=== PATIENT | male | born 1935 | race African-American/Black ===

== ENCOUNTER 2020-01-28 14:29 | Inpatient (IN) | payer OTHER ==
[~2020-01-28] VITALS: Ht 170.2 cm; Wt 72.2 kg
[2020-01-28 15:14] LABS: HEMATOCRIT. 37.7 % (42.0-52.0); HEMOGLOBIN. 12.7 g/dL (14.0-18.0); MEAN CORPUSCULAR HEMOGLOBIN 29.3 pg (28.0-32.0); MEAN CORPUSCULAR VOLUME 87.2 fL (80.0-94.0); PLATELET 181 x1000/uL (130-400); RED BLOOD CELL COUNT 4.32 mill/uL (4.7-6.1); RED CELL DISTRIBUTION WIDTH 14.6 % (11.6-14.6)
[2020-01-28 15:22] LABS: CHLORIDE 108 mEq/L (98-107); PROTHROMBIN TIME 11.3 sec (9.6-11.0)
[2020-01-28 15:47] LABS: PLATELET ESTIMATE NORMAL
[2020-01-28] MEDS ORDERED: ASPIRIN 325MG EC TABLET PO ONE (16:45)
[2020-01-28] MEDS ORDERED: CLOPIDOGREL 75MG TABLET PO ONE (16:45)
[2020-01-28 16:59] LABS: CLARITY URINE CLEAR (CLEAR); KETONES URINE NEGATIVE (NEGATIVE); LEUKOCYTE ESTERASE URINE NEGATIVE (NEGATIVE); NITRITE URINE NEGATIVE (NEGATIVE); OCCULT BLOOD URINE 1+ (NEGATIVE); PH URINE 6.5 (4.5-8.0); PROTEIN URINE 2+ (NEGATIVE); SPECIFIC GRAVITY URINE 1.014 (1.005-1.030); UROBILINOGEN URINE 0.2 E.U./dL (0.2-1.0)
[2020-01-28 17:02] LABS: COLOR URINE PALE YELLOW (YELLOW)
[2020-01-28] MEDS ORDERED: ACETAMINOPHEN 325MG TABLET PO PRN (19:30)
[2020-01-28] MEDS ORDERED: IPRATROPIUM/ALBUTEROL 0.5-3(2.5)MG/3ML NEB NEB PRN (19:30)
[2020-01-28] MEDS ORDERED: GUAIFENESIN 200MG/10ML SUGAR FREE UDC PO PRN (19:30)
[2020-01-28] MEDS ORDERED: MAGNESIUM/ALUMINUM HYDROXIDE/SIMETHICONE 30ML UDC PO PRN (19:30)
[2020-01-28] MEDS ORDERED: NA PHOS,M-B/NA PHOS,DI-BA ENEMA 118ML PR PRN (19:30)
[2020-01-28] MEDS ORDERED: ONDANSETRON HCL 4MG/2ML INJ IV PRN (19:30)
[2020-01-28] MEDS ORDERED: DEXTROSE 50% WATER 50ML SYRINGE IV PRN (19:30)
[2020-01-28] MEDS ORDERED: HYDROCODONE/ACETAMINOPHEN 10/325MG TABLET PO PRN (19:30)
[2020-01-28] MEDS ORDERED: DOCUSATE SODIUM 100MG CAPSULE PO PRN (19:30)
[2020-01-28] MEDS ORDERED: MORPHINE SULFATE 2 MG/ML CPJ (NOT FOR IM USE) IV PRN (19:30)
[2020-01-28 20:00] VITALS: BP 197/81
[2020-01-28 20:41] VITALS: BP 197/81
[2020-01-28] MEDS: INSULIN LISPRO 100 UNITS/ML SUBCUT SCH (21:00)
[2020-01-28] MEDS: HYDRALAZINE 20MG/ML VIAL IV PRN (21:11)
[2020-01-28] MEDS: ENOXAPARIN 30MG/0.3ML SYR SUBCUT SCH (21:11)
[2020-01-28] MEDS: BLOOD SUGAR DIAGNOSTIC STRIP TEST SCH (21:12)
[2020-01-28] MEDS: SODIUM CHLORIDE 0.9% INJ 3ML FLUSH IVF SCH (21:13)
[2020-01-28 23:12] LABS: CREATINE KINASE 85 IU/L (39-308)
[2020-01-28 23:13] LABS: CREATINE KINASE MB FRACTION < 1.0 ng/mL (0.5-3.6)
[2020-01-29] VITALS: BP 158/84
[2020-01-29 04:00] VITALS: BP 178/85
[2020-01-29] MEDS: HYDRALAZINE 20MG/ML VIAL IV PRN (04:32)
[2020-01-29 05:47] LABS: EOSINOPHILS % 2.2 % (0.0-5.0); HEMATOCRIT. 38.7 % (42.0-52.0); LYMPHOCYTES % 23.5 % (20.0-50.0); MEAN PLATELET VOLUME 9.9 fl (7.4-10.4); NEUTROPHILS % 64.3 % (40.0-76.0); PLATELET 185 x1000/uL (130-400); RED BLOOD CELL COUNT 4.49 mill/uL (4.7-6.1); RED CELL DISTRIBUTION WIDTH 14.3 % (11.6-14.6)
[2020-01-29 06:03] LABS: CHLORIDE 104 mEq/L (98-107)
[2020-01-29 06:19] LABS: CREATINE KINASE 85 IU/L (39-308); T4 FREE 1.37 ng/dL (0.76-1.46)
[2020-01-29 06:21] LABS: CREATINE KINASE MB FRACTION < 1.0 ng/mL (0.5-3.6)
[2020-01-29] MEDS: CLONIDINE 0.1MG TABLET PO PRN (06:35)
[2020-01-29] MEDS: SODIUM CHLORIDE 0.9% INJ 3ML FLUSH IVF SCH ×3 (06:41→23:25)
[2020-01-29] MEDS: BLOOD SUGAR DIAGNOSTIC STRIP TEST SCH ×4 (06:41→23:18)
[2020-01-29] MEDS: INSULIN LISPRO 100 UNITS/ML SUBCUT SCH ×4 (08:27→23:18)
[2020-01-29 08:28] VITALS: BP 157/76
[2020-01-29] MEDS ORDERED: POTASSIUM CHLORIDE 20MEQ TABLET SR PO NR (09:45)
[2020-01-29 12:16] VITALS: BP 157/79
[2020-01-29 15:58] LABS: CREATINE KINASE 75 IU/L (39-308)
[2020-01-29 15:59] LABS: CREATINE KINASE MB FRACTION < 1.0 ng/mL (0.5-3.6)
[2020-01-29 16:10] VITALS: BP 156/73
[2020-01-29 17:30] LABS: VITAMIN B12 SERUM 438 pg/mL (211-911)
[2020-01-29] MEDS: LORAZEPAM 2MG/ML CPJ IV PRN (19:59)
[2020-01-29 20:44] VITALS: BP 156/72
[2020-01-29 23:20] LABS: CREATINE KINASE 100 IU/L (39-308)
[2020-01-29 23:21] LABS: CREATINE KINASE MB FRACTION < 1.0 ng/mL (0.5-3.6)
[2020-01-29] MEDS: ENOXAPARIN 30MG/0.3ML SYR SUBCUT SCH (23:26)
[2020-01-30 00:25] VITALS: BP 141/75
[2020-01-30 04:00] VITALS: BP 146/73
[2020-01-30] MEDS: SODIUM CHLORIDE 0.9% INJ 3ML FLUSH IVF SCH ×4 (06:00→21:23)
[2020-01-30] MEDS: INSULIN LISPRO 100 UNITS/ML SUBCUT SCH ×4 (06:48→20:43)
[2020-01-30] MEDS: BLOOD SUGAR DIAGNOSTIC STRIP TEST SCH ×4 (06:48→20:21)
[2020-01-30 06:54] LABS: CREATINE KINASE 151 IU/L (39-308)
[2020-01-30 06:55] LABS: CREATINE KINASE MB FRACTION < 1.0 ng/mL (0.5-3.6)
[2020-01-30] MEDS: LORAZEPAM 2MG/ML CPJ IV PRN ×2 (07:20→14:32)
[2020-01-30 07:44] VITALS: BP 133/83
[2020-01-30 11:32] VITALS: BP 165/84
[2020-01-30] MEDS ORDERED: POTASSIUM CHLORIDE 20MEQ TABLET SR PO ONE (13:00)
[2020-01-30] MEDS: ENOXAPARIN 30MG/0.3ML SYR SUBCUT SCH (20:42)
[2020-01-30 21:24] VITALS: BP 170/79
[2020-01-30] MEDS: HYDRALAZINE 20MG/ML VIAL IV PRN (21:24)
[2020-01-30 23:07] VITALS: BP 188/90
[2020-01-30] MEDS: CLONIDINE 0.1MG TABLET PO PRN (23:07)
[2020-01-31] VITALS: BP 168/75
[2020-01-31 00:54] VITALS: BP 126/70
[2020-01-31 04:00] VITALS: BP 143/78
[2020-01-31] MEDS: BLOOD SUGAR DIAGNOSTIC STRIP TEST SCH ×4 (06:29→20:56)
[2020-01-31] MEDS: INSULIN LISPRO 100 UNITS/ML SUBCUT SCH ×4 (06:30→20:57)
[2020-01-31] MEDS: SODIUM CHLORIDE 0.9% INJ 3ML FLUSH IVF SCH ×3 (07:06→20:57)
[2020-01-31 08:00] VITALS: BP 166/84
[2020-01-31] MEDS: CLONIDINE 0.1MG TABLET PO PRN ×2 (08:50→17:42)
[2020-01-31] MEDS ORDERED: CLOPIDOGREL 75MG TABLET PO SCH (11:00)
[2020-01-31 16:18] VITALS: BP 168/98
[2020-01-31 20:00] VITALS: BP 187/85
[2020-01-31] MEDS: ENOXAPARIN 30MG/0.3ML SYR SUBCUT SCH (20:56)
[2020-01-31] MEDS: HYDRALAZINE 20MG/ML VIAL IV PRN (21:02)
[2020-02-01] VITALS: BP 205/96
[2020-02-01] MEDS: CLONIDINE 0.1MG TABLET PO PRN ×2 (00:58→08:46)
[2020-02-01 04:00] VITALS: BP 178/86
[2020-02-01] MEDS: HYDRALAZINE 20MG/ML VIAL IV PRN ×3 (04:08→20:12)
[2020-02-01] MEDS: SODIUM CHLORIDE 0.9% INJ 3ML FLUSH IVF SCH ×3 (05:11→21:50)
[2020-02-01] MEDS: BLOOD SUGAR DIAGNOSTIC STRIP TEST SCH ×4 (05:44→20:38)
[2020-02-01] MEDS: INSULIN LISPRO 100 UNITS/ML SUBCUT SCH ×4 (05:44→20:36)
[2020-02-01 08:00] VITALS: BP 181/86
[2020-02-01] MEDS: LORAZEPAM 2MG/ML CPJ IV PRN ×3 (08:46→20:54)
[2020-02-01] MEDS ORDERED: ASPIRIN 81MG TABLET PO SCH (09:00)
[2020-02-01] MEDS: RISPERIDONE 0.5MG TABLET PO PRN (11:30)
[2020-02-01 12:00] VITALS: BP 153/80
[2020-02-01] MEDS: DIPHENHYDRAMINE 50MG/ML VIAL IV PRN (12:26)
[2020-02-01 12:54] LABS: CHLORIDE 110 mEq/L (98-107)
[2020-02-01] MEDS: AMLODIPINE 10MG TABLET PO SCH (13:30)
[2020-02-01 16:00] VITALS: BP 189/88
[2020-02-01] MEDS: DEXT 5%/0.45% NACL 1000ML 1,000 ML IV SCH (17:03)
[2020-02-01 20:00] VITALS: BP 169/89
[2020-02-01] MEDS: ASPIRIN 81MG TABLET PO SCH (20:10)
[2020-02-01] MEDS: CLOPIDOGREL 75MG TABLET PO SCH (20:10)
[2020-02-01] MEDS: ATORVASTATIN CALCIUM 40MG TABLET PO SCH (20:10)
[2020-02-01] MEDS: ENOXAPARIN 30MG/0.3ML SYR SUBCUT SCH (20:11)
[2020-02-02] VITALS: BP 151/83
[2020-02-02] MEDS: LORAZEPAM 2MG/ML CPJ IV PRN ×2 (02:02→14:30)
[2020-02-02 04:00] VITALS: BP 176/83
[2020-02-02] MEDS: DEXT 5%/0.45% NACL 1000ML 1,000 ML IV SCH ×2 (04:33→22:30)
[2020-02-02] MEDS: CLONIDINE 0.1MG TABLET PO PRN ×2 (04:40→17:44)
[2020-02-02] MEDS: SODIUM CHLORIDE 0.9% INJ 3ML FLUSH IVF SCH ×3 (05:15→22:30)
[2020-02-02] MEDS: BLOOD SUGAR DIAGNOSTIC STRIP TEST SCH ×4 (05:45→21:00)
[2020-02-02] MEDS: INSULIN LISPRO 100 UNITS/ML SUBCUT SCH ×4 (06:17→21:00)
[2020-02-02 06:28] LABS: BASOPHILS % 0.7 % (0.0-2.0); EOSINOPHILS % 1.4 % (0.0-5.0); HEMATOCRIT. 40.1 % (42.0-52.0); HEMOGLOBIN. 13.3 g/dL (14.0-18.0); LYMPHOCYTES % 13.1 % (20.0-50.0); MEAN CORPUSCULAR HEMOGLOBIN 29.1 pg (28.0-32.0); MEAN CORPUSCULAR VOLUME 87.9 fL (80.0-94.0); MEAN PLATELET VOLUME 9.4 fl (7.4-10.4); NEUTROPHILS % 75.8 % (40.0-76.0); PLATELET 199 x1000/uL (130-400); RED BLOOD CELL COUNT 4.57 mill/uL (4.7-6.1); RED CELL DISTRIBUTION WIDTH 14.8 % (11.6-14.6)
[2020-02-02 06:44] LABS: CHLORIDE 110 mEq/L (98-107)
[2020-02-02 08:00] VITALS: BP 166/79
[2020-02-02] MEDS: CLOPIDOGREL 75MG TABLET PO SCH (09:07)
[2020-02-02] MEDS: HYDRALAZINE 20MG/ML VIAL IV PRN ×2 (09:07→17:45)
[2020-02-02] MEDS: AMLODIPINE 10MG TABLET PO SCH (09:07)
[2020-02-02] MEDS: ASPIRIN 81MG TABLET PO SCH (09:07)
[2020-02-02 12:00] VITALS: BP 169/107
[2020-02-02 16:00] VITALS: BP 198/91
[2020-02-02 20:00] VITALS: BP 155/98
[2020-02-02] MEDS: ENOXAPARIN 30MG/0.3ML SYR SUBCUT SCH (21:00)
[2020-02-02] MEDS: ATORVASTATIN CALCIUM 40MG TABLET PO SCH (21:00)
[2020-02-02] MEDS: RISPERIDONE 0.5MG TABLET PO PRN (22:05)
[2020-02-03] VITALS (8 sets, daily range): BP systolic 146–194; BP diastolic 74–105
[2020-02-03] MEDS: HYDRALAZINE 20MG/ML VIAL IV PRN ×2 (04:14→17:39)
[2020-02-03] MEDS: SODIUM CHLORIDE 0.9% INJ 3ML FLUSH IVF SCH ×3 (05:57→22:38)
[2020-02-03] MEDS: BLOOD SUGAR DIAGNOSTIC STRIP TEST SCH ×4 (05:57→21:00)
[2020-02-03] MEDS: DEXT 5%/0.45% NACL 1000ML 1,000 ML IV SCH (05:58)
[2020-02-03] MEDS: INSULIN LISPRO 100 UNITS/ML SUBCUT SCH ×4 (06:31→21:00)
[2020-02-03] MEDS: CLOPIDOGREL 75MG TABLET PO SCH (08:53)
[2020-02-03] MEDS: ASPIRIN 81MG TABLET PO SCH (08:53)
[2020-02-03] MEDS: AMLODIPINE 10MG TABLET PO SCH (08:53)
[2020-02-03] MEDS: ATORVASTATIN CALCIUM 40MG TABLET PO SCH ×2 (21:00→22:30)
[2020-02-03] MEDS: CLONIDINE 0.1MG TABLET PO SCH ×2 (22:00→22:30)
[2020-02-03] MEDS: ENOXAPARIN 30MG/0.3ML SYR SUBCUT SCH (22:30)
[2020-02-04] VITALS: BP 135/76
[2020-02-04 04:00] VITALS: BP 141/76
[2020-02-04] MEDS: CLONIDINE 0.1MG TABLET PO SCH (05:57)
[2020-02-04] MEDS: SODIUM CHLORIDE 0.9% INJ 3ML FLUSH IVF SCH ×3 (05:57→22:03)
[2020-02-04] MEDS: BLOOD SUGAR DIAGNOSTIC STRIP TEST SCH ×4 (05:57→21:50)
[2020-02-04] MEDS: INSULIN LISPRO 100 UNITS/ML SUBCUT SCH ×4 (06:18→22:03)
[2020-02-04 08:00] VITALS: BP 174/98
[2020-02-04] MEDS: ASPIRIN 81MG TABLET PO SCH (09:50)
[2020-02-04] MEDS: CLOPIDOGREL 75MG TABLET PO SCH (09:50)
[2020-02-04] MEDS: AMLODIPINE 10MG TABLET PO SCH (09:51)
[2020-02-04] MEDS: METOPROLOL TARTRATE 25MG TABLET PO SCH ×2 (09:53→21:50)
[2020-02-04] MEDS: RISPERIDONE 0.5MG TABLET PO PRN (09:53)
[2020-02-04] MEDS: HYDRALAZINE 20MG/ML VIAL IV PRN (11:46)
[2020-02-04 12:00] VITALS: BP 182/98
[2020-02-04 16:00] VITALS: BP 125/75
[2020-02-04 20:00] VITALS: BP 178/116
[2020-02-04] MEDS ORDERED: METOPROLOL TARTRATE 25MG TABLET PO SCH (21:00)
[2020-02-04] MEDS: ATORVASTATIN CALCIUM 40MG TABLET PO SCH (21:46)
[2020-02-04] MEDS: ENOXAPARIN 30MG/0.3ML SYR SUBCUT SCH (21:47)
[2020-02-05] VITALS: BP 153/108
[2020-02-05] MEDS: HYDRALAZINE 20MG/ML VIAL IV PRN (01:08)
[2020-02-05 04:00] VITALS: BP 104/74
[2020-02-05] MEDS: SODIUM CHLORIDE 0.9% INJ 3ML FLUSH IVF SCH ×3 (06:16→22:25)
[2020-02-05] MEDS: BLOOD SUGAR DIAGNOSTIC STRIP TEST SCH ×4 (06:16→21:00)
[2020-02-05] MEDS: INSULIN LISPRO 100 UNITS/ML SUBCUT SCH ×4 (06:30→22:13)
[2020-02-05 08:00] VITALS: BP 173/95
[2020-02-05] MEDS: AMLODIPINE 10MG TABLET PO SCH (08:50)
[2020-02-05] MEDS: METOPROLOL TARTRATE 25MG TABLET PO SCH ×2 (08:52→22:12)
[2020-02-05] MEDS: ASPIRIN 81MG TABLET PO SCH (08:52)
[2020-02-05] MEDS: CLOPIDOGREL 75MG TABLET PO SCH (08:53)
[2020-02-05 12:00] VITALS: BP 146/76
[2020-02-05 16:00] VITALS: BP 148/82
[2020-02-05] MEDS: RISPERIDONE 0.5MG TABLET PO PRN (18:00)
[2020-02-05 20:00] VITALS: BP 159/78
[2020-02-05] MEDS: ATORVASTATIN CALCIUM 40MG TABLET PO SCH (22:12)
[2020-02-05] MEDS: ENOXAPARIN 30MG/0.3ML SYR SUBCUT SCH (22:16)
[2020-02-06] VITALS: BP 150/63
[2020-02-06 04:00] VITALS: BP 143/82
[2020-02-06] MEDS: SODIUM CHLORIDE 0.9% INJ 3ML FLUSH IVF SCH ×3 (06:10→21:48)
[2020-02-06] MEDS: BLOOD SUGAR DIAGNOSTIC STRIP TEST SCH ×4 (06:10→21:47)
[2020-02-06] MEDS: INSULIN LISPRO 100 UNITS/ML SUBCUT SCH ×4 (06:54→21:47)
[2020-02-06 08:00] VITALS: BP 122/101
[2020-02-06] MEDS: ASPIRIN 81MG TABLET PO SCH (08:53)
[2020-02-06] MEDS: CLOPIDOGREL 75MG TABLET PO SCH (08:53)
[2020-02-06] MEDS: AMLODIPINE 10MG TABLET PO SCH (08:54)
[2020-02-06] MEDS: METOPROLOL TARTRATE 25MG TABLET PO SCH ×2 (08:55→21:45)
[2020-02-06 12:00] VITALS: BP 156/77
[2020-02-06] MEDS: RISPERIDONE 0.5MG TABLET PO PRN (15:36)
[2020-02-06] MEDS: HYDRALAZINE 20MG/ML VIAL IV PRN (15:36)
[2020-02-06 16:00] VITALS: BP 165/95
[2020-02-06] MEDS: DIPHENHYDRAMINE 50MG/ML VIAL IV PRN ×2 (16:09→22:44)
[2020-02-06 20:00] VITALS: BP 142/88
[2020-02-06] MEDS: ATORVASTATIN CALCIUM 40MG TABLET PO SCH (21:44)
[2020-02-06] MEDS: ENOXAPARIN 30MG/0.3ML SYR SUBCUT SCH (21:48)
[2020-02-07] VITALS (7 sets, daily range): BP systolic 130–168; BP diastolic 73–91
[2020-02-07] MEDS: BLOOD SUGAR DIAGNOSTIC STRIP TEST SCH ×4 (06:04→22:23)
[2020-02-07] MEDS: SODIUM CHLORIDE 0.9% INJ 3ML FLUSH IVF SCH ×3 (06:05→22:22)
[2020-02-07] MEDS: INSULIN LISPRO 100 UNITS/ML SUBCUT SCH ×4 (06:05→22:35)
[2020-02-07] MEDS: CLOPIDOGREL 75MG TABLET PO SCH (09:37)
[2020-02-07] MEDS: ASPIRIN 81MG TABLET PO SCH (09:38)
[2020-02-07] MEDS: AMLODIPINE 10MG TABLET PO SCH (09:38)
[2020-02-07] MEDS: METOPROLOL TARTRATE 25MG TABLET PO SCH ×2 (09:38→22:21)
[2020-02-07] MEDS: ATORVASTATIN CALCIUM 40MG TABLET PO SCH (22:21)
[2020-02-07] MEDS: ENOXAPARIN 30MG/0.3ML SYR SUBCUT SCH (22:22)
[2020-02-08] VITALS (7 sets, daily range): BP systolic 151–180; BP diastolic 73–92
[2020-02-08] MEDS: SODIUM CHLORIDE 0.9% INJ 3ML FLUSH IVF SCH ×3 (06:52→21:59)
[2020-02-08] MEDS: BLOOD SUGAR DIAGNOSTIC STRIP TEST SCH ×4 (07:40→21:51)
[2020-02-08] MEDS: INSULIN LISPRO 100 UNITS/ML SUBCUT SCH ×4 (07:40→21:58)
[2020-02-08] MEDS: ASPIRIN 81MG TABLET PO SCH (08:53)
[2020-02-08] MEDS: AMLODIPINE 10MG TABLET PO SCH (08:54)
[2020-02-08] MEDS: CLOPIDOGREL 75MG TABLET PO SCH (08:54)
[2020-02-08] MEDS: METOPROLOL TARTRATE 25MG TABLET PO SCH ×2 (08:54→20:13)
[2020-02-08] MEDS: CLONIDINE 0.1MG TABLET PO PRN (16:48)
[2020-02-08] MEDS: HYDRALAZINE 20MG/ML VIAL IV PRN (21:57)
[2020-02-08] MEDS: ATORVASTATIN CALCIUM 40MG TABLET PO SCH (21:57)
[2020-02-08] MEDS: ENOXAPARIN 30MG/0.3ML SYR SUBCUT SCH (21:59)
[2020-02-08] MEDS: RISPERIDONE 0.5MG TABLET PO PRN (22:45)
[2020-02-08] MEDS: DIPHENHYDRAMINE 50MG/ML VIAL IV PRN (22:52)
[2020-02-09] VITALS: BP 156/78
[2020-02-09] MEDS: DIPHENHYDRAMINE 50MG/ML VIAL IV PRN (03:54)
[2020-02-09 04:00] VITALS: BP 152/81
[2020-02-09] MEDS: BLOOD SUGAR DIAGNOSTIC STRIP TEST SCH ×2 (05:29→11:30)
[2020-02-09] MEDS: SODIUM CHLORIDE 0.9% INJ 3ML FLUSH IVF SCH (06:29)
[2020-02-09] MEDS: INSULIN LISPRO 100 UNITS/ML SUBCUT SCH ×2 (06:30→11:34)
[2020-02-09 06:54] LABS: CHLORIDE 113 mEq/L (98-107)
[2020-02-09 07:11] LABS: BASOPHILS % 1.2 % (0.0-2.0); EOSINOPHILS % 1.6 % (0.0-5.0); HEMOGLOBIN. 12.5 g/dL (14.0-18.0); LYMPHOCYTES % 27.8 % (20.0-50.0); MEAN CORPUSCULAR HEMOGLOBIN 29.5 pg (28.0-32.0); MEAN CORPUSCULAR VOLUME 87.2 fL (80.0-94.0); MEAN PLATELET VOLUME 9.5 fl (7.4-10.4); MONOCYTES % 12.9 % (2.0-8.0); NEUTROPHILS % 56.5 % (40.0-76.0); PLATELET 243 x1000/uL (130-400); RED BLOOD CELL COUNT 4.25 mill/uL (4.7-6.1); RED CELL DISTRIBUTION WIDTH 14.3 % (11.6-14.6)
[2020-02-09 08:00] VITALS: BP 154/79
[2020-02-09] MEDS: ASPIRIN 81MG TABLET PO SCH (09:34)
[2020-02-09] MEDS: ATORVASTATIN CALCIUM 40MG TABLET PO SCH (09:34)
[2020-02-09] MEDS: AMLODIPINE 10MG TABLET PO SCH (09:35)
[2020-02-09] MEDS: CLOPIDOGREL 75MG TABLET PO SCH (09:35)
[2020-02-09] MEDS: METOPROLOL TARTRATE 25MG TABLET PO SCH (09:41)
[2020-02-09 11:24] VITALS: BP 160/69
[2020-02-09] MEDS: CLONIDINE 0.1MG TABLET PO PRN (11:30)
[2020-02-09] MEDS ORDERED: CLONIDINE 0.1MG TABLET PO SCH (14:00)
== END 2020-02-09 12:42 | DRG 64 ==
LOC: ER 14:35 → CANBEDREQ 17:23 → 6WST 17:47 → ENRESERV 18:11 → 5WST 01-30 11:33 → 7WST 02-07 23:00 → 5WST 02-08 22:28
PROVIDERS: ADMIT Internal Medicine; ATTEND Internal Medicine
PROC: 4A00X4Z Measurement of Central Nervous Electrical Activity, External Approach (ICD-10-PCS; principal; 2020-01-30)
DX: I63.9 Cerebral infarction, unspecified (principal); G93.41 Metabolic encephalopathy; E11.65 Type 2 diabetes mellitus with hyperglycemia; F03.90 Unspecified dementia, unspecified severity, without behavioral disturbance, psychotic disturbance, mood disturbance, and anxiety; I25.10 Atherosclerotic heart disease of native coronary artery without angina pectoris; R13.10 Dysphagia, unspecified; Z20.828 Contact with and (suspected) exposure to other viral communicable diseases; I11.9 Hypertensive heart disease without heart failure; E78.5 Hyperlipidemia, unspecified; R29.810 Facial weakness; Z95.2 Presence of prosthetic heart valve; Z79.02 Long term (current) use of antithrombotics/antiplatelets; Z95.4 Presence of other heart-valve replacement
CPT/HCPCS: 36415; 70551; 71045; 72100; 80048; 80053; 80061; 81003; 82550; 82553; 82607; 82962; 83036; 83880; 84153; 84439; 84443; 84484; 85025; 85379; 87635; 92523; 92610; 93005; 93306; 93880; 93970; 95816; 96372; 97116; 97162; 97166; 97530; 97535; 99291; J0360; J1200; J1650; J1815; J2060; G0103